=== PATIENT | male | born 1965 | race Caucasian/White ===

== ENCOUNTER 2016-11-12 07:08 | Emergency (ER) | payer OTHER ==
[~2016-11-12] VITALS: Ht 188 cm; Wt 92.1 kg
[2016-11-12] VITALS (10 sets, daily range): BP systolic 91–134; BP diastolic 50–96; PULSE 79–152; TEMP 36.7–36.8; O2SAT 96–100; Ht 188 cm; Wt 92.1 kg
--- NOTE | 2016-11-12 07:26 | EMERGENCY ROOM VISIT NOTE ---
History Report prepared by Radha: Alexandre Shahid Under the Supervision of: Dr. Leti Tovar M.D. First contact with patient: 07:18 Chief Complaint: TACHYCARDIA Stated Complaint: TACHACARDIC Nursing Triage Summary: pt report tachycardia yesterdayt talked to dr penny told to come to ed for cardioversion History of Present Illness The patient is a 51 year old male who presents to the Emergency Room with complaints of persistent tachycardia since yesterday afternoon. He called and was referred to the ED by Dr. Erazo (Cardiology). The patient has a history of atrial flutter, for which he has been cardioverted previously. The patient relates this sensation to previous atrial flutter. The patient denies fevers, chest pain, or shortness of breath. The patient did not experience syncope. He denies any other medical problems. Source of History: patient Onset: yesterday afternoon Position: other (heart) Quality: other (tachycardia) Timing: other (persistent) Associated Symptoms: No fevers, No chest pain, No SOB Review of Systems See HPI for pertinent positives & negatives. A total of 10 systems reviewed and were otherwise negative. Past Medical & Surgical Medical Problems: (1) Acute Pharyngitis (2) Strep Sore Throat Family History Cancer Diabetes mellitus Social History Smoking Status: Never Smoker Alcohol Use: none Marital Status: Housing Status: lives with significant other Occupation Status: employed Current/Historical Medications No Active Prescriptions or Reported Meds Allergies Coded Allergies: No Known Allergies (Unverified , 11/12/16) Physical Exam Vital Signs Date Time Temp Pulse Resp B/P (MAP) Pulse Ox O2 Delivery O2 Flow Rate FiO2 11/12/16 10:16 86 16 91/50 97 11/12/16 10:09 96 16 99/58 97 Room Air 11/12/16 09:13 92 16 91/57 99 Room Air 11/12/16 09:13 92 16 91/57 99 Room Air 88 11/12/16 09:00 89 16 91/61 97 Room Air 11/12/16 08:56 36.8 79 18 93/63 96 Room Air 11/12/16 08:38 86 16 116/66 98 Nasal Cannula 2.0 11/12/16 08:35 86 17 101/60 98 Nasal Cannula 2.0 11/12/16 08:32 85 12 96 Nasal Cannula 2.0 11/12/16 08:31 151 9 99 Nasal Cannula 2.0 11/12/16 08:30 152 18 134/96 99 Nasal Cannula 2.0 11/12/16 08:29 36.7 152 18 134/96 100 Nasal Cannula 2.0 11/12/16 08:21 155 20 116/82 99 Nasal Cannula 2.0 32 11/12/16 07:58 155 16 99/72 11/12/16 07:45 163 11/12/16 07:35 160 11/12/16 07:13 36.9 164 18 97/77 97 Room Air Physical Exam Vital signs reviewed. General: Well-appearing male, in no significant distress. Noted to be tachycardic and mildly hypotensive. HEENT: No scleral icterus, PERRLA, neck supple. Atraumatic. Cardiovascular: Tachycardic, regular rhythm, no extra sounds. Pulmonary: Clear to auscultation bilaterally, normal work of breathing. Abdomen: Soft, nontender, nondistended, positive bowel sounds. Musculoskeletal: Atraumatic, no peripheral edema. Neurologic: Patient awake alert and oriented x 3, full strength in all 4 extremities. Cranial nerves 2 through 12 grossly intact. Skin: Warm, dry, no rash Medical Decision & Procedures ER Provider Diagnostic Interpretation: X-ray results as stated below per interpretation by me and the radiologist: SINGLE VIEW CHEST CLINICAL HISTORY: Atrial flutter. Atypical chest pain. FINDINGS: 2 AP, portable, upright chest radiographs are compared to study dated 03/16/2015. The examination is degraded by portable technique and patient rotation. The cardiomediastinal silhouette is unremarkable. The lungs appear hyperinflated and hyperlucent with flattening the diaphragm suggesting obstructive physiology. No airspace consolidation, pleural effusion, or pneumothorax is seen. The bony thorax is grossly intact. IMPRESSION: Findings suggest obstructive physiology. There is no acute cardiopulmonary abnormality. Electronically signed by: Maldonado Jordan M.D. 11/12/2016 7:54 AM Dictated Date/Time: 11/12/2016 7:52 AM Laboratory Results 11/12/16 07:22 Red Blood Count 5.88, Mean Corpuscular Volume 86.9, Mean Corpuscular Hemoglobin 29.9, Mean Corpuscular Hemoglobin Concent 34.4, Mean Platelet Volume 9.2, Neutrophils (%) (Auto) 73.1, Lymphocytes (%) (Auto) 15.0, Monocytes (%) (Auto) 10.6, Eosinophils (%) (Auto) 0.5, Basophils (%) (Auto) 0.5, Neutrophils # (Auto ) 5.80, Lymphocytes # (Auto) 1.19, Monocytes # (Auto) 0.84, Eosinophils # (Auto ) 0.04, Basophils # (Auto) 0.04 11/12/16 07:22 Test 11/12/16 07:22 11/12/16 07:35 White Blood Count 7.93 K/uL (4.8-10.8) Red Blood Count 5.88 M/uL (4.7-6.1) Hemoglobin 17.6 g/dL (14.0-18.0) Hematocrit 51.1 % (42-52) Mean Corpuscular Volume 86.9 fL (80-100) Mean Corpuscular Hemoglobin 29.9 pg (25-34) Mean Corpuscular Hemoglobin Concent 34.4 g/dl (32-36) Platelet Count 263 K/uL (130-400) Mean Platelet Volume 9.2 fL (7.4-10.4) Neutrophils (%) (Auto) 73.1 % Lymphocytes (%) (Auto) 15.0 % Monocytes (%) (Auto) 10.6 % Eosinophils (%) (Auto) 0.5 % Basophils (%) (Auto) 0.5 % Neutrophils # (Auto) 5.80 K/uL (1.4-6.5) Lymphocytes # (Auto) 1.19 K/uL (1.2-3.4) Monocytes # (Auto) 0.84 K/uL (0.11-0.59) Eosinophils # (Auto) 0.04 K/uL (0-0.5) Basophils # (Auto) 0.04 K/uL (0-0.2) RDW Standard Deviation 40.9 fL (36.4-46.3) RDW Coefficient of Variation 12.7 % (11.5-14.5) Immature Granulocyte % (Auto) 0.3 % Immature Granulocyte # (Auto) 0.02 K/uL (0.00-0.02) Anion Gap 7.0 mmol/L (3-11) Est Creatinine Clear Calc Drug Dose 85.7 ml/min Estimated GFR () 81.2 Estimated GFR (Non- 70.1 BUN/Creatinine Ratio 13.6 (10-20) Calcium Level 8.5 mg/dl (8.5-10.1) Magnesium Level 2.5 mg/dl (1.8-2.4) Total Bilirubin 0.6 mg/dl (0.2-1) Direct Bilirubin 0.1 mg/dl (0-0.2) Aspartate Amino Transf (AST/SGOT) 24 U/L (15-37) Alanine Aminotransferase (ALT/SGPT) 30 U/L (12-78) Alkaline Phosphatase 83 U/L (45-117) Total Creatine Kinase 189 U/L (39-308) Creatine Kinase MB 3.1 ng/ml (0.5-3.6) Creatine Kinase MB Ratio 1.6 (0-3.0) Total Protein 7.4 gm/dl (6.4-8.2) Albumin 4.1 gm/dl (3.4-5.0) Bedside Troponin I 0.010 ng/ml (0-0.045) Laboratory results per my review. Medications Administered Medications (Trade) Dose Ordered Sig/Georges Route Start Time Stop Time Status Last Admin Dose Admin Metoprolol Tartrate (Lopressor Iv) 5 mg STK-MED ONCE .ROUTE 11/12/16 07:33 11/12/16 07:34 DC 11/12/16 07:35 5 MG Sodium Chloride 500 ml @ 999 mls/hr Q31M STAT IV 11/12/16 08:13 11/12/16 08:43 DC 11/12/16 08:17 999 MLS/HR Sodium Chloride 1,000 ml @ 125 mls/hr Q8H STAT IV 11/12/16 08:13 11/12/16 10:55 DC 11/12/16 08:17 125 MLS/HR Propofol (Diprivan Iv Emulsion 20ml Vial) 100 mg NOW STAT IV 11/12/16 08:16 11/12/16 08:18 DC 11/12/16 08:16 100 MG Procedure Procedural Sedation Indication Cardioversion. Total time: 16 minutes. Written consent was obtained after the risks and benefits were explained to the patient, including, but not limited to aspiration, allergic reaction, breathing difficulties, cardiac complications, vomiting, pain, event recall, bleeding, and /or infection. Pre-sedation examination and paperwork completed. The patient was on 100% oxygen via NRB prior to the procedure. Continuous end tidal CO2 monitoring, pulse oximetry, and cardiac monitoring were utilized. Suction, airway equipment, medications, respiratory equipment, and appropriate personnel were prepared prior to the initiation of the procedure. A time out was taken. Sedation was achieved utilizing a total of 100 mg of Propofol. After I observed the patient had reached the appropriate level of sedation the main procedure was performed without complication. Sedation was discontinued and the monitoring continued. The patient recovered quickly from the effects of the medication without complication or adverse event. ECG Indication: tachycardia Rate (beats per minute): 162 Rhythm: atrial flutter (rapid) Findings: other (diffuse T-wave abnormalities) Change: Repeat EKG post-cardioversion: Normal sinus at 89, frequent PACs. Compared to previous EKG, patient is no longer in atrial flutter and ST-changes are largely resolved. ED Course 0720: Past medical records reviewed. The patient was evaluated in room B12b. A complete history and physical examination was performed. 0809: Reassessed the patient. 0812: Discussed the case with Dr. Erazo, Associate Professor Computer Science. He will be in to cardiovert the patient. 0813: NSS 1000 ml @ 125 mls/hr, NSS 500 ml @ 999 mls/hr. 0816: Propofol 100 mg IV Ordered. 0820: The patient was moved to room B1 for cardioversion. Dr. Erazo at bedside. 0824: Discussed the risks and benefits of conscious sedation with the patient. 0829: Procedural sedation started. Please see procedure note above. 0845: Conscious sedation finished. 1015: Reassessed the patient. He is feeling better and is eager to be discharged. 1150: Spoke with the patient over the phone. Discussed his Eliquis use. He already had a dose today. Medical Decision Differential diagnosis: Etiologies such as premature contractions, electrolyte abnormality, cardiac dysrhythmia, thyroid dysfunction, pulmonary embolism, infection, gastrointestinal, as well as others were entertained. Blood Pressure Screening: Patient was found to have normal blood pressure on screening and does not require follow-up. Medication Reconciliation: I attest that I have personally reviewed the patient' s current medication list. This pt was evaluated and appeared to be in no distress. IV access was obtained and lab work was drawn. Pt was hydrated with NSS and IV metoprolol 5 mg without significant effect on BP. Pt remained slightly hypotensive but stable. Dr Erazo was consulted and asked that the pt be sedated for cardioversion. Pt was consented. Cardioversion was performed by Dr Erazo and was successful. Pt was observed in the ED for several hours and did well. He was d/c to his 's care to f/u with cards as directed. He will return to the ED for worsening of symptoms or any medical concerns. Consults Time Called: 805 Consulting Physician: Dr. Erazo, Associate Professor Computer Science Returned Call: 811 He will be in to cardiovert the patient. Impression Primary Impression: Atrial flutter with rapid ventricular response Critical Care I have personally spent greater than 35 minutes of critical care time in the direct management of this patient. This includes bedside care, interpretation of diagnostic studies, and testing, discussion with consultants, patient, and family members, and other required patient management activities. This 35 minutes is in excess of all separately billable procedures. Scribe Attestation The scribe's documentation has been prepared under my direction and personally reviewed by me in its entirety. I confirm that the note above accurately reflects all work, treatment, procedures, and medical decision making performed by me. Departure Information Dispostion Home / Self-Care Prescriptions No Active Prescriptions or Reported Meds Referrals No Doctor, Assigned (PCP) Forms Adult Anesthesia/Sedation, HOME CARE DOCUMENTATION FORM, IMPORTANT VISIT INFORMATION, WORK / SCHOOL INSTRUCTIONS Patient Instructions Atrial Flutter, My [facility] Additional Instructions Diagnosis: Rapid atrial flutter Take your anticoagulant medication as prescribed by Dr. Erazo. Avoid stimulants such as caffeine. Avoid excessive alcohol intake. Follow-up with cardiology for reevaluation as directed by Dr Erazo Return to the ER for worsening of symptoms or any medical concerns.
[2016-11-12] MEDS ORDERED: METOPROLOL TARTRATE 1 MG/ML VIAL IV STA (07:29)
[2016-11-12] MEDS ORDERED: METOPROLOL TARTRATE 1 MG/ML VIAL ONE (07:33)
[2016-11-12 07:34] LABS: BASO % 0.5 %; BASO ABS # 0.04 K/uL (0-0.2); COMPLETE YES; EOS % 0.5 %; HEMATOCRIT 51.1 % (42-52); IG% 0.3 %; LYMPH ABS # 1.19 K/uL (1.2-3.4); MEAN CELL VOLUME 86.9 fL (80-100); MEAN CORPUSCULAR HEMOGLOBIN 29.9 pg (25-34); MEAN CORPUSCULAR HGB CONC 34.4 g/dl (32-36); MEAN PLATELET VOLUME 9.2 fL (7.4-10.4); MONO % 10.6 %; NEUT % 73.1 %; PLATELET COUNT 263 K/uL (130-400); RED BLOOD COUNT 5.88 M/uL (4.7-6.1); WHITE BLOOD COUNT 7.93 K/uL (4.8-10.8)
[2016-11-12 07:51] LABS: BUN/CREATININE RATIO 13.6 (10-20); CALCIUM 8.5 mg/dl (8.5-10.1); CREATININE 1.2 mg/dl (0.60-1.40); MAGNESIUM 2.5 mg/dl (1.8-2.4)
--- NOTE | 2016-11-12 07:55 | DIAGNOSTIC IMAGING REPORT ---
SINGLE VIEW CHEST CLINICAL HISTORY: Atrial flutter. Atypical chest pain. FINDINGS: 2 AP, portable, upright chest radiographs are compared to study dated 03/16/2015. The examination is degraded by portable technique and patient rotation. The cardiomediastinal silhouette is unremarkable. The lungs appear hyperinflated and hyperlucent with flattening the diaphragm suggesting obstructive physiology. No airspace consolidation, pleural effusion, or pneumothorax is seen. The bony thorax is grossly intact. IMPRESSION: Findings suggest obstructive physiology. There is no acute cardiopulmonary abnormality. Electronically signed by: Maldonado Jordan M.D. 11/12/2016 7:54 AM Dictated Date/Time: 11/12/2016 7:52 AM
[2016-11-12 07:56] LABS: CKMB/CK RATIO 1.6 (0-3.0)
[2016-11-12] MEDS ORDERED: SODIUM CHLORIDE 0.9% 1000ML 1,000 ML IV STA (08:13)
[2016-11-12] MEDS ORDERED: SODIUM CHLORIDE 0.9% 500ML 500 ML IV STA (08:13)
[2016-11-12] MEDS ORDERED: PROPOFOL IV EMULSION 10 MG/ML 20 ML VIAL IV STA (08:16)
--- NOTE | 2016-11-12 08:31 | EMERGENCY ROOM VISIT NOTE ---
Pre-Mod Sedation Assessment General Date of Moderate Sedation: Nov 12, 2016. Vital Signs: Vital Signs Past 12 Hours Date Time Temp Pulse Resp B/P (MAP) Pulse Ox O2 Delivery O2 Flow Rate FiO2 11/12/16 08:21 155 20 116/82 99 Nasal Cannula 2.0 32 11/12/16 07:58 155 16 99/72 11/12/16 07:45 163 11/12/16 07:35 160 11/12/16 07:13 36.9 164 18 97/77 97 Room Air Review Cardiovascular: normal peripheral pulses, + tachycardia, + abnormal rate, + abnormal rhythm Abdomen: non tender, soft Lungs: lungs clear, normal breath sounds, no respiratory distress Airway Class: I Pre-Sedation Airway Assessment Oral Cavity: WNL Able to Visualize Vocal Cords: Yes Short Thick Neck: No Smoking Status: Never Smoker Mallampati Classification: Class I (Sft palate,uvula,fauces,pillar) ASA Classification: Class I Procedure Planning Contraindications-for Mod Sed: None Yes Notes The planned sedation has been discussed with the patient and consent obtained. I have identified the patient, determined the appropriateness of sedation and have assessed the patient immediately prior to the procedure. All medicine(s) and interventions are by my order.
--- NOTE | 2016-11-12 08:44 | EMERGENCY ROOM VISIT NOTE ---
Post-Moderate Sedation Plan General Date of Moderate Sedation Nov 12, 2016. Vital Signs: Vital Signs Past 12 Hours Date Time Temp Pulse Resp B/P (MAP) Pulse Ox O2 Delivery O2 Flow Rate FiO2 11/12/16 08:29 36.7 152 18 134/96 100 Nasal Cannula 2.0 11/12/16 08:21 155 20 116/82 99 Nasal Cannula 2.0 32 11/12/16 07:58 155 16 99/72 11/12/16 07:45 163 11/12/16 07:35 160 11/12/16 07:13 36.9 164 18 97/77 97 Room Air Review - Discharge Plan Post Moderate Sedation Plan: On clinical assessment, the patient appears to have tolerated the conscious sedation without complications. Patient is recovering as anticipated. Patient will continue to be monitored by nursing and may be discharged when conscious sedation discharge criteria are met.
--- NOTE | 2016-11-12 08:48 | Cardiology Procedure Brief Nt ---
Preliminary Cardiology Note Procedure Date Nov 12, 2016. Pre-Procedure Diagnosis Atrial flutter Post-Procedure Diagnosis Same Procedure(s) Performed Electrical cardioversion Pe Teacher Castro Billboard Poster(s) None Estimated Blood Loss None Preliminary Findings Successful cardioversion with 50J Recommendations Monitor and discharge Specimens None Anesthesia Propofol Complication(s) None Disposition ER
--- NOTE | 2016-11-12 09:08 | CARDIOVERSION ---
DATE OF OPERATION: 11/12/2016 DATE OF PROCEDURE: 11/12/2016. INDICATIONS FOR CARDIOVERSION: Atrial flutter. HISTORY OF PRESENT ILLNESS: This is a 51-year-old male who has a history of paroxysmal atrial flutter, although has not had episodes for several years. He felt a sudden onset of palpitations at 3:00 p.m. on 11/11/2016, he called the office shortly thereafter. He is always very aware of when his arrhythmia starts. We elected to have him come into the Emergency Room this morning if the arrhythmia did not terminate, remaining n.p.o. He did so and arrived in atrial flutter with a heart rate of 160 beats per minute, the arrhythmia looks like typical atrial flutter. After obtaining informed consent for cardioversion, he was anesthetized with propofol anesthetic delivered by the Emergency Room staff, once adequately anesthetized an anteroposterior biphasic synchronized shock of 50 joules was used to convert the rhythm to sinus rhythm. He awoke without sequelae, will be observed briefly and sent home with anticoagulation. ANNIKA
--- NOTE | 2016-11-12 09:15 | Cardiology Consultation ---
Cardiology Consultation Date of Consultation: Nov 12, 2016. Requesting Physician: Dr. Tovar Reason for Consultation: Atrial flutter Pt evaluation today including: conversation w/ patient, physical exam, lab review, review of studies, review of inpatient medication list, conversation w/ attending History of Present Illness This is a 51-year-old gentleman with a history of palpitations and an irregular heart rhythm which goes back to around 1994. He also has rapid heart rates at times and he had documented atrial flutter on 01/27/2015. He has had very infrequent episodes since. He then had an episode of a very similar arrhythmia starting at around 2:30 PM on 11/11/2016, he called our office. I discussed it with him, initially he felt it was like his flutter and the rate was around 160 bpm. When he first called the office he talked to our staff and they advised him to go to the emergency room, he had family issues to deal with and did not. I talked to him around 5: 30 that evening, he was feeling somewhat better but still felt that the rhythm was abnormal. He had no other associated symptoms. We agreed that he would monitor it overnight and if it was still present in the morning that he would come into the emergency room. The arrhythmia was still present this morning therefore he came into the emergency room. He is still aware of the arrhythmia but is not having lightheadedness, dizziness or palpitations and has no chest discomfort. He does not have difficulty with exertion but has not been doing anything strenuous. Past Medical/Surgical History (1) Atrial flutter with rapid ventricular response (2) Palpitations Family History Cancer Diabetes mellitus Social History Smoking Status: Current Every Day Smoker Review of Systems Constitutional: No fever, No weight loss, No weakness Respiratory: No cough, No wheezing, No shortness of breath, No dyspnea on exertion Cardiac: + palpitations, No chest pain, No orthopnea, No PND, No edema Abdomen: No pain, No nausea, No vomiting, No diarrhea, No GI bleeding Male : No urinary frequency, No nocturia more than once/night, No slowing stream, No sexual dysfunction Neurologic: No paralysis, No weakness, No numbness/tingling, No balance problems Heme: No abnormal bleeding/bruising, No clotting problems Endo: No fatigue Skin: No problem reported All Other Systems: Reviewed and Negative Allergies Coded Allergies: No Known Allergies (Unverified , 11/12/16) Medications Current Inpatient Medications Medications (Trade) Dose Ordered Sig/Georges Route Start Time Stop Time Status Last Admin Dose Admin Sodium Chloride 1,000 ml @ 125 mls/hr Q8H STAT IV 11/12/16 08:13 11/12/16 16:12 11/12/16 08:17 125 MLS/HR Physical Exam Vital Signs Past 12 Hours Date Time Temp Pulse Resp B/P (MAP) Pulse Ox O2 Delivery O2 Flow Rate FiO2 11/12/16 08:56 36.8 79 18 93/63 96 Room Air 11/12/16 08:38 86 16 116/66 98 Nasal Cannula 2.0 11/12/16 08:35 86 17 101/60 98 Nasal Cannula 2.0 11/12/16 08:32 85 12 96 Nasal Cannula 2.0 11/12/16 08:31 151 9 99 Nasal Cannula 2.0 11/12/16 08:30 152 18 134/96 99 Nasal Cannula 2.0 11/12/16 08:29 36.7 152 18 134/96 100 Nasal Cannula 2.0 11/12/16 08:21 155 20 116/82 99 Nasal Cannula 2.0 32 11/12/16 07:58 155 16 99/72 11/12/16 07:45 163 11/12/16 07:35 160 11/12/16 07:13 36.9 164 18 97/77 97 Room Air Constitutional: General Apperance: heathly-appearing Level of Distress: NAD Psychiatric: Mental Status: active & alert Head: normocephalic Eyes: EOM: EOMI ENMT: normal ENT inspection, hearing grossly normal Neck: supple, no masses Lungs: Respiratory effort: no dyspnea, good air movement Auscultation: breath sounds normal, no wheezing Cardiovascular: Heart Auscultation: RRR, no murmurs, no rubs, no gallops, tachycardia Peripheral Pulses: Bruits: none appreciated Abdomen: Bowel Sounds: normal Inspection & Palpation: soft, no tenderness, guarding & rebound, no masses Musculoskeletal: normal strength (5/5 throughout) Extremities: no edema Neurologic: Cranial Nerves: grossly intact Sensation: grossly intact Data Laboratory Results: Last 24 Hours Test 11/12/16 07:22 11/12/16 07:35 White Blood Count 7.93 K/uL Red Blood Count 5.88 M/uL Hemoglobin 17.6 g/dL Hematocrit 51.1 % Mean Corpuscular Volume 86.9 fL Mean Corpuscular Hemoglobin 29.9 pg Mean Corpuscular Hemoglobin Concent 34.4 g/dl Platelet Count 263 K/uL Mean Platelet Volume 9.2 fL Neutrophils (%) (Auto) 73.1 % Lymphocytes (%) (Auto) 15.0 % Monocytes (%) (Auto) 10.6 % Eosinophils (%) (Auto) 0.5 % Basophils (%) (Auto) 0.5 % Neutrophils # (Auto) 5.80 K/uL Lymphocytes # (Auto) 1.19 K/uL Monocytes # (Auto) 0.84 K/uL Eosinophils # (Auto) 0.04 K/uL Basophils # (Auto) 0.04 K/uL RDW Standard Deviation 40.9 fL RDW Coefficient of Variation 12.7 % Immature Granulocyte % (Auto) 0.3 % Immature Granulocyte # (Auto) 0.02 K/uL Sodium Level 140 mmol/L Potassium Level 4.0 mmol/L Chloride Level 104 mmol/L Carbon Dioxide Level 29 mmol/L Anion Gap 7.0 mmol/L Blood Urea Nitrogen 16 mg/dl Creatinine 1.20 mg/dl Est Creatinine Clear Calc Drug Dose 85.7 ml/min Estimated GFR () 81.2 Estimated GFR (Non- 70.1 BUN/Creatinine Ratio 13.6 Random Glucose 101 mg/dl Calcium Level 8.5 mg/dl Magnesium Level 2.5 mg/dl Total Bilirubin 0.6 mg/dl Direct Bilirubin 0.1 mg/dl Aspartate Amino Transf (AST/SGOT) 24 U/L Alanine Aminotransferase (ALT/SGPT) 30 U/L Alkaline Phosphatase 83 U/L Total Creatine Kinase 189 U/L Creatine Kinase MB 3.1 ng/ml Creatine Kinase MB Ratio 1.6 Total Protein 7.4 gm/dl Albumin 4.1 gm/dl Bedside Troponin I 0.010 ng/ml EKG: Typical atrial flutter with 2:1 AV conduction with ventricular rate 162 BPM Telemetry reviewed: Typical atrial flutter with 2:1 AV conduction Assessment & Plan 1. Atrial flutter: He now presents with an episode of atrial flutter which has been present for approximately 14-16 hours. He is very confident that it was not present prior to that. This is similar to what he has had before. Intravenous Cardizem was unsuccessful in controlling the rhythm, which has been his pattern in the past. At this point I think we need to consider cardioversion. I discussed the indications, procedure, risks and alternatives with him and he understands and agrees to proceed. We will do that with sedation provided by Dr. Tovar. 2. Anticoagulation: Will use oral anticoagulant for 1 month, Eliquis. Will give samples in office after discharge, he will stop by and pick them up..
== END 2016-11-12 10:24 | disposition home or self-care (01) ==
LOC: C.EDB 07:09
DX: I48.92 Unspecified atrial flutter (principal); Z86.19 Personal history of other infectious and parasitic diseases; Z80.9 Family history of malignant neoplasm, unspecified; Z83.3 Family history of diabetes mellitus; F17.200 Nicotine dependence, unspecified, uncomplicated